=== PATIENT | male | born 1985 | race Caucasian/White ===

== ENCOUNTER 2017-04-17 10:48 | Emergency (ER) | payer OTHER, MEDICARE ==
[~2017-04-17] VITALS: Ht 175.3 cm; Wt 92.3 kg
[2017-04-17 10:54] VITALS: BP 144/89
[2017-04-17] MEDS ORDERED: IBUP-1984 PO (12:46)
== END 2017-04-17 12:56 | disposition home or self-care (01) ==
LOC: ER 10:49
DX: S29.019A Strain of muscle and tendon of unspecified wall of thorax, initial encounter (principal); X58.XXXA Exposure to other specified factors, initial encounter; Y93.89 Activity, other specified; Y92.89 Other specified places as the place of occurrence of the external cause; Y99.8 Other external cause status
CPT/HCPCS: 72074; 99284